=== PATIENT | male | born 1960 | race Caucasian/White ===

== ENCOUNTER → 2017-02-23 | Day surgery (SDC) | payer OTHER ==
[2017-02-22 13:41] LABS: BASOPHILS % 0.6 % (0.0-1.0); EOSINOPHILS # (AUTO) 0.2 (0.0-0.4); EOSINOPHILS % 2.8 % (0.0-6.0); HEMATOCRIT 38.3 % (38.2-49.6); LYMPHOCYTES # (AUTO) 2.6 (1.0-3.2); MEAN CORPUSCULAR HEMOGLOBIN 30.2 pg (28-32); MEAN CORPUSCULAR HGB CONC 33.9 g/dL (31-35); MEAN CORPUSCULAR VOLUME 88.9 fL (81-99); MONOCYTES # (AUTO) 0.6 (0.2-0.8); MONOCYTES % 9.5 % (4.4-11.3); NEUTROPHILS # (AUTO) 3.2 (2.1-6.9); NEUTROPHILS % 47.8 % (38.7-80.0); PLATELET COUNT 205 x10e3/uL (140-360); RED BLOOD COUNT 4.31 x10e6/uL (4.3-5.7); RED CELL DISTRIBUTION WIDTH 12.3 % (11.7-14.4)
[~2017-02-23] MED LIST: BUPIVACAINE HCL 0.5% INJ 30 ML VIAL INJ ONE; BYSTOLIC10 MG PO; DEXAMETHASONE SOD PHOS INJ 4 MG/ML VIAL ONE; FENTANYL CITRATE/PF 100MCG/2 ML INJ ONE; GELATIN SPONGE SZ 100 ONE; LIDOCAINE 1% W/EPINEPHRINE 20 ML VIAL ONE; LIDOCAINE HCL 2% LOCAL INJ 5 ML SDV VIAL INJ ONE; LIDOCAINE JELLY 2% 10ML URO-JET ONE; LIPITOR20 MG PO; MIDAZOLAM HCL 2 MG/2 ML VIAL ONE; ONDANSETRON HCL INJ 2 MG/ML VIAL ONE; PERCOCET 10-321 EACH PO; PROPOFOL IV EMULSION 10 MG/ML 20 ML VIAL ONE; SEVOFLURANE INHAL SOLN 250 ML PEN BTL ONE
[2017-02-23] MEDS: CEFOXITIN 1GM/ DEXTROSE 50ML 100 ML IV ONE (12:31)
--- NOTE | 2017-02-23 17:04 | Operative Report ---
DATE OF PROCEDURE: February 23, 2017 PREOPERATIVE DIAGNOSIS: Bleeding thrombosed internal and external hemorrhoids. POSTOPERATIVE DIAGNOSIS: Bleeding thrombosed internal and external hemorrhoids. PROCEDURE: Internal and external hemorrhoidectomy. CLEAN ENERGY POLICY ANALYST: None. ANESTHESIA: General endotracheal. INDICATIONS AND FINDINGS: Patient is a 56-year-old male who presented with complaints of pain and swelling in the perianal area. Exam revealed thrombosed external hemorrhoids and also a history of bleeding from hemorrhoids. At surgery there were 2 thrombosed external hemorrhoids, left lateral and right posterior position with associated internal hemorrhoids also. There was no significant enlarged right anterior hemorrhoid. TECHNIQUE: After adequate general endotracheal anesthesia with patient in the prone jackknife position, the perianal area was prepped and draped in sterile fashion with Betadine solution. Exam revealed enlarged thrombosed hemorrhoids, right posterior and right lateral positions with associated internal hemorrhoids. Perianal skin and anal canal was infiltrated 1/2 mixture of 1% lidocaine with epinephrine 1/2 percent Marcaine. The left lateral hemorrhoid was grasped and incision made at the base of the hemorrhoid and hemorrhoid was excised. The external hemorrhoid dissected away as well as the internal hemorrhoid dissected off the internal sphincter. Entire hemorrhoid complex was free. The base was then doubly suture ligated with 2-0 Vicryl. Hemorrhoid was excised. There was a few thrombosed hemorrhoids that were adjacent to this and these were excised submucosally. A figure-of-8 suture was placed across the base of the hemorrhoid and anal canal mucosa was then closed with 2-0 Vicryl. Similarly, the enlarged thrombosed right posterior hemorrhoid was excised. Incision made at the base of the hemorrhoid and it was dissected free from the underlying internal sphincter until the entire hemorrhoidal complex was free. The base was then doubly suture ligated with 2-0 Vicryl. The hemorrhoid was removed. Figure-of-8 suture of 2-0 Vicryl was placed across the hemorrhoid and the anal canal mucosa closed with 2-0 Vicryl. Hemostasis at each suture line was seen to be adequate. There were no other significant enlarged hemorrhoids. Surgicel gauze was placed along each suture line. A sterile dressing applied. Patient tolerated procedure well. Estimated blood loss was 20 mL. There were no complications. All counts were correct. Patient was taken to the recovery room in satisfactory condition. Job#: [id number]
== END | disposition home or self-care (01) ==
LOC: OR 13:02
PROVIDERS: ATTEND Surgery
DX: K64.5 Perianal venous thrombosis (principal); K64.8 Other hemorrhoids; I10 Essential (primary) hypertension; Z01.810 Encounter for preprocedural cardiovascular examination; Z01.812 Encounter for preprocedural laboratory examination; Z68.30 Body mass index [BMI] 30.0-30.9, adult; Z98.1 Arthrodesis status
CPT/HCPCS: 36415; 46260; 85025; 88304; 93005; J1100; J2001; J2250; J2405

== ENCOUNTER → 2020-04-20 | Day surgery (SDC) | payer OTHER ==
[2020-04-15 10:03] LABS: BASOPHILS # (AUTO) 0.1 (0.0-0.1); BASOPHILS % 0.7 % (0.0-1.0); EOSINOPHILS # (AUTO) 0.3 (0.0-0.4); EOSINOPHILS % 3.9 % (0.0-6.0); HEMATOCRIT 42.6 % (38.2-49.6); HEMOGLOBIN 14.3 g/dL (14.0-18.0); LYMPHOCYTES % 43.2 % (18.0-39.1); MEAN CORPUSCULAR HEMOGLOBIN 29.9 pg (28-32); MEAN CORPUSCULAR HGB CONC 33.6 g/dL (31-35); MEAN CORPUSCULAR VOLUME 88.9 fL (81-99); MONOCYTES # (AUTO) 0.6 (0.2-0.8); MONOCYTES % 8.6 % (4.4-11.3); NEUTROPHILS % 43.3 % (38.7-80.0); PLATELET COUNT 219 x10e3/uL (140-360); RED BLOOD COUNT 4.79 x10e6/uL (4.3-5.7); RED CELL DISTRIBUTION WIDTH 12.1 % (11.7-14.4)
[~2020-04-20] MED LIST changes: -BUPIVACAINE HCL 0.5% INJ 30 ML VIAL INJ ONE; -DEXAMETHASONE SOD PHOS INJ 4 MG/ML VIAL ONE; -GELATIN SPONGE SZ 100 ONE; +HYOSCYAMINE SULFATE 0.5 MG/ML INJ ONE; -LIDOCAINE 1% W/EPINEPHRINE 20 ML VIAL ONE; -LIDOCAINE JELLY 2% 10ML URO-JET ONE; +OMEPRAZOLE40 MG PO; -ONDANSETRON HCL INJ 2 MG/ML VIAL ONE; +PANTOPRAZOLE 40 MG 10ML VIAL ONE; -SEVOFLURANE INHAL SOLN 250 ML PEN BTL ONE; +ZETIA10 MG PO
[2020-04-20 13:15] VITALS: BP 110/65
== END | disposition home or self-care (01) ==
LOC: OR 10:00
PROVIDERS: ATTEND Internal Medicine Gastroenterology
DX: K21.9 Gastro-esophageal reflux disease without esophagitis (principal); K63.5 Polyp of colon; K29.50 Unspecified chronic gastritis without bleeding; K20.90 Esophagitis, unspecified without bleeding; K44.9 Diaphragmatic hernia without obstruction or gangrene; K22.8 Other specified diseases of esophagus; K64.8 Other hemorrhoids; I10 Essential (primary) hypertension; E78.00 Pure hypercholesterolemia, unspecified; F17.210 Nicotine dependence, cigarettes, uncomplicated; Z01.810 Encounter for preprocedural cardiovascular examination; Z01.812 Encounter for preprocedural laboratory examination; Z20.822 Contact with and (suspected) exposure to COVID-19; Z68.29 Body mass index [BMI] 29.0-29.9, adult
CPT/HCPCS: 36415; 43239; 45384; 85025; 93005; C9113; J1980; J2001; J2250; J2704; J3010; U0002; 45378